=== PATIENT | male | born 1995 | race Caucasian/White ===

== ENCOUNTER → 2019-12-20 | Outpatient (CLI) | payer OTHER ==
[~2019-12-20] MED LIST: Amoxicillin500 MG PO; Azithromycin500 MG PO; BENMENLOZ MT; CEPH500 PO; DIPH25 PO; PRED20 PO; Prednisone10 MG PO; Prednisone20 MG PO; TRIA80TC TOP; Zithromax Tri-500 MG PO
[2019-12-22 15:52] LABS: CORONAVIRUS (COVID19) CSH-NRL Negative (Negative)
== END | disposition home or self-care (01) ==
LOC: LAB SHORT 12:15 → LAB EV 12:15
PROVIDERS: Physician Assistant
DX: J02.9 Acute pharyngitis, unspecified (principal); Z20.828 Contact with and (suspected) exposure to other viral communicable diseases
CPT/HCPCS: 87081; U0003

== ENCOUNTER 2020-09-10 00:13 | Emergency (ER) | payer OTHER ==
[~2020-09-10] VITALS: Ht 177.8 cm; Wt 170.1 kg
== END 2020-09-10 04:11 | disposition home or self-care (01) ==
LOC: ER 00:13
DX: U07.1 COVID-19 (principal)
CPT/HCPCS: 71045; 99283-25